=== PATIENT | female | born 1945 | race Caucasian/White ===

== ENCOUNTER 2018-06-07 08:00 | Inpatient (IN) | payer OTHER ==
[~2018-06-07] VITALS: Ht 165.1 cm; Wt 69.9 kg
[2018-06-08] MEDS ORDERED: MULTAQ400 MG PO (11:27)
[2018-06-08] MEDS ORDERED: LANTUS SOL100 UNIT/1 (11:27)
[2018-06-08] MEDS ORDERED: DILTIAZEM 24HR240 MG PO (11:28)
[2018-06-08] MEDS ORDERED: METFORMIN HCL500 MG PO (11:28)
[2018-06-08] MEDS ORDERED: ATORVASTATIN CA40 MG PO (11:29)
[2018-06-08] MEDS ORDERED: PRILOSEC OTC20 MG PO (11:29)
[2018-06-08] MEDS ORDERED: ZANTAC300 MG PO (11:30)
[2018-06-08] MEDS ORDERED: SINGULAIR10 MG PO (11:30)
[2018-06-08] MEDS ORDERED: MELATONIN5 M1 PO (11:30)
[2018-06-08] MEDS ORDERED: ASPIR-LOW81 MG PO (11:31)
[2018-06-08] MEDS ORDERED: PULMOCARE PO (11:31)
== END 2018-06-17 12:19 | disposition home or self-care (01) | DRG 331 ==
LOC: SURH 06-14 08:00 → O/R 06-14 10:44 → SURG 06-14 10:44 → SURH 06-14 12:30 → SURG 06-14 19:43
PROVIDERS: Colon & Rectal Surgery
PROC: 0DTP4ZZ Resection of Rectum, Percutaneous Endoscopic Approach (ICD-10-PCS; 2018-06-14)
PROC: 0DJD8ZZ Inspection of Lower Intestinal Tract, Via Natural or Artificial Opening Endoscopic (ICD-10-PCS; 2018-06-14)
PROC: 3E0F7GC Introduction of Other Therapeutic Substance into Respiratory Tract, Via Natural or Artificial Opening (ICD-10-PCS; 2018-06-14)
PROC: 0DTN4ZZ Resection of Sigmoid Colon, Percutaneous Endoscopic Approach (ICD-10-PCS; principal; 2018-06-14 12:30)
DX: K57.30 Diverticulosis of large intestine without perforation or abscess without bleeding (principal); J44.9 Chronic obstructive pulmonary disease, unspecified; J45.20 Mild intermittent asthma, uncomplicated

== ENCOUNTER 2018-06-24 13:30 | Emergency (ER) | payer OTHER ==
[~2018-06-24] VITALS: Ht 165.1 cm; Wt 65.3 kg
[~2018-06-24 13:30] MED LIST: ASPIR-LOW81 MG PO; ATORVASTATIN CA40 MG PO; DILTIAZEM 24HR240 MG PO; LANTUS SOL100 UNIT/1; MELATONIN5 M1 PO; METFORMIN HCL500 MG PO; MULTAQ400 MG PO; PRILOSEC OTC20 MG PO; PULMOCARE PO; SINGULAIR10 MG PO; ZANTAC300 MG PO
[2018-06-24] MEDS ORDERED: DILTIAZEM 24HR240 MG (13:56)
== END 2018-06-24 18:28 | disposition home or self-care (01) ==
LOC: ER 13:30
DX: K52.89 Other specified noninfective gastroenteritis and colitis (principal); E86.0 Dehydration

== ENCOUNTER 2018-11-17 13:45 | Day surgery (SDC) | payer OTHER ==
[~2018-11-17 13:45] MED LIST changes: +DILTIAZEM 24HR240 MG
== END 2018-11-17 17:35 | disposition home or self-care (01) ==
LOC: AMB-ENDOS 13:45
DX: K57.32 Diverticulitis of large intestine without perforation or abscess without bleeding (principal)